=== PATIENT | male | born 1970 | race Caucasian/White ===

== ENCOUNTER 2016-12-10 22:59 | Emergency (ER) | payer OTHER ==
[~2016-12-10] VITALS: Ht 172.7 cm; Wt 117.9 kg
[~2016-12-10 22:59] MED LIST: ALBUTEROL SULF8.5 GM INH; AUGMENTIN 875-1 EAC1 ORAL; AZITHROMYCIN250 MG ORAL; BACTRIM-DS1 EA PO; CEPHALEXIN500 MG PO; COLACE100 MG PO; CYCLOBENZAPRINE10 MG ORAL; IBUPROFEN600 MG ORAL; KEFLEX500 MG ORAL; KEFLEX500 MG PO; METFORMIN HCL500 M1 ORAL; NAPROSYN500 M1 ORAL; NEURONTIN100 MG ORAL; NORCO 10/3251 EA ORAL; NORCO 5-325 TA1 EACH ORAL; NORVASC5 MG PO; PREDNISONE20 MG ORAL; RANITIDINE HCL150 MG ORAL; REGLAN5 MG ORAL; TOPROL XL25 MG PO; TYLENOL 8 HOUR650 M1 ORAL; VICODIN 5-5001 EACH PO
--- NOTE | 2016-12-10 23:53 | Emergency Room Report ---
History of Present Illness General Chief Complaint: Abdominal Pain Source: Patient Present Illness HPI Is a 46-year-old male with a history of diabetes and morbid obesity. He presents with chief complaint of suprapubic and left lower quadrant pain. Onset for last 4 days. Initially had an episode fever. No nausea no vomiting. No diarrhea. Does have some urinary hesitancy. Denies any other complaint. Pain is 7/10. Allergies: Coded Allergies: No Known Allergies (Unverified , 02/09/12) Patient History Past Medical History: see triage record, old chart reviewed, DM Past Surgical History: other Pertinent Family History: none Social History: Reports: smoking Immunizations: other Reviewed Nursing Documentation: PMH: Agreed, PSxH: Agreed Nursing Documentation-PMH Hx Hypertension: Yes Hx Asthma: Yes Hx Diabetes: Yes Hx Gastrointestinal Problems: Yes - hernia Review of Systems Eye: Denies: eye pain, blurred vision ENT: Denies: ear pain, nose congestion, throat swelling Respiratory: Denies: cough, shortness of breath Cardiovascular: Denies: chest pain, palpitations Gastrointestinal: Reports: abdominal pain, Denies: diarrhea, nausea, vomiting Musculoskeletal: Denies: back pain, joint pain Skin: Denies: rash Neurological: Denies: headache, numbness Endocrine: Denies: increased thirst, increased urine Hematologic/Lymphatic: Denies: easy bruising All Other Systems: negative except mentioned in HPI Physical Exam Vital Signs Date Time Temp Pulse Resp B/P (MAP) Pulse Ox O2 Delivery O2 Flow Rate FiO2 12/10/16 23:08 98.1 97 16 144/92 99 Room Air vitals normal Sp02 EP Interpretation: reviewed, normal General Appearance: well appearing, no apparent distress, alert, obese Head: normocephalic, atraumatic Eyes: bilateral eye PERRL, bilateral eye EOMI ENT: hearing grossly normal, normal pharynx Neck: full range of motion, supple, no meningismus Respiratory: chest non-tender, lungs clear, normal breath sounds Cardiovascular #1: regular rate, rhythm, no murmur Gastrointestinal: normal bowel sounds, no mass, no organomegaly, no bruit, non- distended, tenderness - Mild suprapubic and left lower quadrant tenderness Musculoskeletal: back normal, gait/station normal, normal range of motion Psychiatric: mood/affect normal Skin: warm/dry Medical Decision Making Diagnostic Impression: Primary Impression: Diverticulitis Qualified Codes: K57.32 - Diverticulitis of large intestine without perforation or abscess without bleeding ER Course Patient presents with left lower caught her and pain and has diverticulitis on CT scan. He looks well. No evidence of acute abdomen. We'll put on antibiotics. We'll discharge him. Lab Results Impression labs unremarkable CT/MRI/US Diagnostic Results CT/MRI/US Diagnostic Results : Imaging Test Ordered: CT abdomen and pelvis Impression read by radiologist. Acute diverticulitis with colon. Last Vital Signs Date Time Temp Pulse Resp B/P (MAP) Pulse Ox O2 Delivery O2 Flow Rate FiO2 12/10/16 23:08 98.1 97 16 144/92 99 Room Air Status: improved Disposition: HOME, SELF-CARE Condition: Stable Scripts Metronidazole* (FLAGYL*) 500 Mg Tablet 500 MG ORAL BID, #14 TAB Prov: BARBER HIDALGO M.D. 12/11/16 Ciprofloxacin Hcl* (CIPROFLOXACIN HCL*) 500 Mg Tablet 500 MG ORAL Q12H, #14 TAB 0 Refills Prov: BARBER HIDALGO M.D. 12/11/16 Additional Instructions: Followup with your DrMargarita in 2 to 3 days for recheck. Return if worse. BARBER HIDALGO M.D. Dec 10, 2016 23:53
[2016-12-11 00:02] LABS: BASOPHILS % (AUTO) 1.2 % (0.0-2.0); LYMPHOCYTES % (AUTO) 32.6 % (20.0-45.0); MEAN CORPUSCULAR HEMOGLOBIN 30.1 PG (27.0-31.0); MEAN CORPUSCULAR HGB CONC 33.9 G/DL (32.0-36.0); MEAN CORPUSCULAR VOLUME 89 FL (80-99); MEAN PLATELET VOLUME 6.3 FL (6.5-10.1); MONOCYTES % (AUTO) 6.9 % (1.0-10.0); NEUTROPHILS % (AUTO) 56.3 % (45.0-75.0); PLATELET COUNT 314 K/UL (150-450); RED BLOOD COUNT 5.03 M/UL (4.70-6.10); RED CELL DISTRIBUTION WIDTH 13.3 % (11.6-14.8); WHITE BLOOD COUNT 11.3 K/UL (4.8-10.8)
[2016-12-11 00:04] LABS: APPEARANCE,URINE CLEAR; KETONES,URINE 1+ (NEGATIVE); LEUKOCYTE ESTERASE ,URINE 1+ (NEGATIVE); NITRITE,URINE NEGATIVE (NEGATIVE); PH,URINE 5 (4.5-8.0); PROTEIN,URINE 2+ (NEGATIVE); UROBILINOGEN,URINE 1 MG/DL (0.0-1.0)
[2016-12-11 00:18] LABS: RBC,URINE 0-2 /HPF (0 - 0)
[2016-12-11 00:19] LABS: BACTERIA,URINE FEW /HPF; SQUAMOUS EPITHELIAL CELL,UR FEW /LPF (NONE/OCC); WBC,URINE 0-2 /HPF (0 - 0)
[2016-12-11 00:24] LABS: ALANINE AMINOTRANSFERASE 79 U/L (12-78); ALBUMIN/GLOBULIN RATIO 0.8 (1.0-2.7); ANION GAP 11 mmol/L (5-15); ASPARTATE AMINO TRANSFERASE 22 U/L (15-37); CALCIUM 9.5 MG/DL (8.5-10.1); CARBON DIOXIDE 26 MMOL/L (21-32); CHLORIDE 103 MMOL/L (98-107); CREATININE 1.1 MG/DL (0.55-1.30); GLOMERULAR FILTRATION RATE > 60 mL/min (>60); LIPASE 153 U/L (73-393); POTASSIUM 3.8 MMOL/L (3.5-5.1); SODIUM 140 MMOL/L (136-145); TOTAL PROTEIN 8.8 G/DL (6.4-8.2)
[2016-12-11] MEDS ORDERED: CIPROFLOXACIN500 M2 ORAL (01:26)
[2016-12-11] MEDS ORDERED: METRONIDAZOLE500 MG ORAL (01:26)
[2016-12-11] MEDS ORDERED: Ciprofloxacin 500mg tab ORAL ONE (01:30)
[2016-12-11] MEDS ORDERED: metroNIDAZOLE 500mg tab ORAL ONE (01:30)
[2016-12-11 01:33] VITALS: BP 144/92
--- NOTE | 2016-12-11 09:42 | Diagnostic Imaging Report ---
Indication: Abdominal pain. Painful urination Technique: Spiral acquisitions obtained through the abdomen and pelvis. No oral contrast utilized, per emergency room physician request No IV contrast utilized, per referring physician request.. Multiplanar reconstructions were generated. Total dose length product 1666 mGycm. CTDIvol(s) 31 mGy. Dose reduction achieved using automated exposure control Comparison: None Findings: There is sigmoid diverticulosis. There is inflammation surrounding the mid sigmoid colon. The affected sigmoid wall is thickened. No extraluminal gas or fluid is demonstrated. The appendix is normal. There is no small bowel distention. No free or loculated intraperitoneal air or fluid is evident. The distal esophageal wall is mildly thickened. The stomach and duodenum are unremarkable is a small fat-containing umbilical hernia. There are small fat-containing bilateral inguinal hernias. Lack of IV contrast limits assessment of solid organs. The liver is diffusely mildly hypoattenuating, consistent with mild fatty change. The gallbladder, bile ducts, pancreas, spleen, adrenals, kidneys, ureters, bladder are all unremarkable. No retroperitoneal or mesenteric mass or adenopathy. No pelvic mass or adenopathy. The included lung bases are clear. The bones are unremarkable. Impression: Positive for acute uncomplicated sigmoid diverticulitis Fatty liver Fat-containing umbilical and bilateral inguinal hernias incidentally noted This agrees with the preliminary interpretation provided overnight by [facility]. The CT scanner at [facility] is accredited by the [employer] and the scans are performed using protocols designed to limit radiation exposure to as low as reasonably achievable to attain images of sufficient resolution adequate for diagnostic evaluation.
== END 2016-12-11 01:35 | disposition home or self-care (01) ==
LOC: EMR 23:45
DX: K57.32 Diverticulitis of large intestine without perforation or abscess without bleeding (principal); I10 Essential (primary) hypertension; J45.909 Unspecified asthma, uncomplicated; E11.9 Type 2 diabetes mellitus without complications; F17.200 Nicotine dependence, unspecified, uncomplicated; K76.0 Fatty (change of) liver, not elsewhere classified; K42.9 Umbilical hernia without obstruction or gangrene; K40.20 Bilateral inguinal hernia, without obstruction or gangrene, not specified as recurrent
CPT/HCPCS: 36415; 74176; 80053; 80307; 81003; 83690; 85025; 99284

== ENCOUNTER 2017-03-10 02:01 | Emergency (ER) | payer OTHER ==
[~2017-03-10] VITALS: Ht 172.7 cm; Wt 99.8 kg
[~2017-03-10 02:01] MED LIST changes: +CIPROFLOXACIN500 M2 ORAL; +METRONIDAZOLE500 MG ORAL
[2017-03-10 02:15] VITALS: BP 151/97
[2017-03-10] MEDS ORDERED: BACTRIM DS TAB1 EAC1 ORAL (02:45)
[2017-03-10] MEDS ORDERED: IBUPROFEN600 MG ORAL (02:45)
--- NOTE | 2017-03-10 02:46 | Emergency Room Report ---
History of Present Illness General Chief Complaint: Skin Rash/Abscess Source: Patient Present Illness HPI Is a 46-year-old male with a history of abscess in the past. He presents with a right thigh abscess. It has been there for 3 days. He poked it with a needle. There was a small amount of drainage. Now increasing swelling. No fever chills. no new drainage. Pain is 8/10. Allergies: Coded Allergies: No Known Allergies (Unverified , 02/09/12) Patient History Past Medical History: see triage record, old chart reviewed Past Surgical History: other Pertinent Family History: none Social History: Denies: smoking Immunizations: other Reviewed Nursing Documentation: PMH: Agreed, PSxH: Agreed Nursing Documentation-PMH Hx Hypertension: Yes Hx Asthma: Yes Hx Diabetes: Yes Hx Gastrointestinal Problems: Yes - hernia Review of Systems Eye: Denies: eye pain, blurred vision ENT: Denies: ear pain, nose congestion, throat swelling Respiratory: Denies: cough, shortness of breath Cardiovascular: Denies: chest pain, palpitations Gastrointestinal: Denies: abdominal pain, diarrhea, nausea, vomiting Musculoskeletal: Denies: back pain, joint pain Skin: Denies: rash Neurological: Denies: headache, numbness Endocrine: Denies: increased thirst, increased urine Hematologic/Lymphatic: Denies: easy bruising All Other Systems: negative except mentioned in HPI Physical Exam Vital Signs Date Time Temp Pulse Resp B/P (MAP) Pulse Ox O2 Delivery O2 Flow Rate FiO2 03/10/17 02:06 97.5 104 18 151/97 96 Room Air vitals normal except for high blood pressure Sp02 EP Interpretation: reviewed, normal General Appearance: well appearing, no apparent distress, alert, obese Head: normocephalic, atraumatic Eyes: bilateral eye PERRL, bilateral eye EOMI ENT: hearing grossly normal, normal pharynx Neck: full range of motion, supple, no meningismus Respiratory: chest non-tender, lungs clear, normal breath sounds Cardiovascular #1: regular rate, rhythm, no murmur Gastrointestinal: normal bowel sounds, non tender, no mass, no organomegaly, no bruit, non-distended Musculoskeletal: back normal, gait/station normal, normal range of motion, other - Right inner thigh proximally, or is an indurated area of 3 cm with surround erythema. Psychiatric: mood/affect normal Skin: warm/dry Procedures Incision and Drainage Incision and Drainage : Consent: Verbal Site: Right thigh Blade Size: 11 I & D Procedure: betadine prep, sterile drapes applied, sterile dressing applied, gauze wick placed Wound Location: lower extremity Anesthesia: 1% Lidocaine Volume Anesthetic (ccs): 8 Patient Tolerated: Well Complications: None Progress Area clean with Betadine. Local anesthetic 1% lidocaine without epinephrine. I made a 2 cm incision. Loculated area broken up. Only scant amount of pus expressed. Packing done. Patient tolerated procedure without a problem. Medical Decision Making Diagnostic Impression: Primary Impression: Thigh abscess ER Course Patient presents with an early abscess. Minimal drainage. We'll discharge home. Deep infection. No necrotizing fasciitis. Last Vital Signs Date Time Temp Pulse Resp B/P (MAP) Pulse Ox O2 Delivery O2 Flow Rate FiO2 03/10/17 02:15 97.5 104 18 151/97 96 Room Air Status: improved Disposition: HOME, SELF-CARE Condition: Stable Scripts Ibuprofen* (MOTRIN*) 600 Mg Tablet 600 MG ORAL Q8H Y for For Pain, #30 TAB 0 Refills Prov: BARBER HIDALGO M.D. 03/10/17 Trimethoprim/Sulfamethoxazole 160/800* (BACTRIM DS TABLET*) 1 Each Tablet 1 TAB ORAL Q12H, #14 TAB 0 Refills Prov: BARBER HIDALGO M.D. 03/10/17 Referrals: [facility] (PCP) Patient Instructions: Abscess Additional Instructions: Followup in 2 days for recheck. Return if worse. BARBER HIDALGO M.D. Mar 10, 2017 02:46
[2017-03-10 02:54] VITALS: BP 151/97
[2017-03-10] MEDS ORDERED: Bactrim-DS 1 tab ORAL ONE (03:00)
== END 2017-03-10 02:55 | disposition home or self-care (01) ==
LOC: EMR 02:20
DX: L02.415 Cutaneous abscess of right lower limb (principal); E11.9 Type 2 diabetes mellitus without complications; J45.909 Unspecified asthma, uncomplicated; I10 Essential (primary) hypertension
CPT/HCPCS: 10060; 99283

== ENCOUNTER 2017-03-18 01:36 | Emergency (ER) | payer OTHER ==
[~2017-03-18] VITALS: Ht 177.8 cm; Wt 104.3 kg
[~2017-03-18 01:36] MED LIST changes: +BACTRIM DS TAB1 EAC1 ORAL
[2017-03-18] MEDS ORDERED: METFORMIN HCL500 M1 ORAL (01:44)
[2017-03-18 01:45] VITALS: BP 140/96
[2017-03-18] MEDS ORDERED: BACTRIM DS TAB1 EAC1 ORAL (01:57)
[2017-03-18 02:27] VITALS: BP 140/96
[2017-03-18] MEDS ORDERED: Tetanus/Diptheria/Pertussis Vaccine 0.5ml Syr IM ONE (02:30)
[2017-03-18] MEDS ORDERED: Bactrim-DS 1 tab ORAL ONE (02:30)
--- NOTE | 2017-03-18 04:00 | Emergency Room Report ---
History of Present Illness General Chief Complaint: Wound Recheck/Suture Removal Source: Patient Present Illness HPI Patient is a 46-year-old male presented for wound check on recently surgical site. The patient recently had incision and drainage of a right thigh abscess. Patient had no fever. He reported having moderate pain. He denied any chest pain or shortness of breath. Patient reportedly had finished his antibiotics. Allergies: Coded Allergies: No Known Allergies (Unverified , 02/09/12) Patient History Past Medical History: see triage record Reviewed Nursing Documentation: PMH: Agreed, PSxH: Agreed Nursing Documentation-PMH Hx Hypertension: Yes Hx Asthma: Yes Hx Diabetes: Yes Hx Gastrointestinal Problems: Yes - hernia Review of Systems All Other Systems: negative except mentioned in HPI Physical Exam Vital Signs Date Time Temp Pulse Resp B/P (MAP) Pulse Ox O2 Delivery O2 Flow Rate FiO2 03/18/17 01:40 101 24 140/96 97 Room Air General Appearance: no apparent distress, alert, GCS 15, Chronically Ill Head: normocephalic, atraumatic ENT: hearing grossly normal, normal voice Neck: full range of motion, supple Respiratory: lungs clear, normal breath sounds, no respiratory distress, speaking full sentences Cardiovascular #1: normal peripheral pulses, regular rate, rhythm, no edema Gastrointestinal: normal inspection, non tender, soft Musculoskeletal: normal inspection, back normal, no calf tenderness Neurologic: normal inspection, alert, oriented x3, responsive, sales ledger administrator III-XII nml as tested, motor strength/tone normal, normal gait Psychiatric: mood/affect normal Skin: no rash, other - healing abscess without drainage slight induration no erythema Medical Decision Making Diagnostic Impression: Primary Impression: Visit for wound check ER Course Patient presented for wound check. Differential diagnosis included was not limited to infected wound, nonhealed wound, neuroma, healed wound. Patient was given tetanus vaccine. Patient was noted to have some evidence of the continued infection but this has does not appear frankly infected. Patient was given oral antibiotics and prescription for antibiotics.The patient is advised to follow up with primary care doctor in 1-2 days. Patient is advised to return if any worsening condition or if any changes in status that are concerning. This report is dictated with [employer] optical assistant software which may occasionally lead to discrepancies related to use of this software. Last Vital Signs Date Time Temp Pulse Resp B/P (MAP) Pulse Ox O2 Delivery O2 Flow Rate FiO2 03/18/17 02:27 101 24 140/96 97 Room Air Status: improved Disposition: HOME, SELF-CARE Condition: Stable Scripts Trimethoprim/Sulfamethoxazole 160/800* (BACTRIM DS TABLET*) 1 Each Tablet 1 TAB ORAL Q12H, #14 TAB 0 Refills Prov: Harrison Stafford 03/18/17 Referrals: [facility] (PCP) Patient Instructions: Wound Check Harrison Stafford Mar 18, 2017 04:00
== END 2017-03-18 02:27 | disposition home or self-care (01) ==
LOC: EMR 01:56
DX: Z48.00 Encounter for change or removal of nonsurgical wound dressing (principal); Z23 Encounter for immunization; I10 Essential (primary) hypertension; E11.9 Type 2 diabetes mellitus without complications; J45.909 Unspecified asthma, uncomplicated
CPT/HCPCS: 90471; 90715; 99283

== ENCOUNTER 2017-09-13 20:46 | Emergency (ER) | payer OTHER ==
[~2017-09-13] VITALS: Ht 172.7 cm; Wt 115.7 kg
[2017-09-13 21:03] VITALS: BP 156/94
--- NOTE | 2017-09-13 21:08 | Emergency Room Report ---
History of Present Illness General Chief Complaint: Upper Extremity Injury Source: Patient Present Illness HPI This is a 46-year-old male who is right-hand dominant. He presents with right thumb pain. He injured his hand several weeks ago he said. He was pushing a block of ice to break it. He said he hurt his thumb. His been wearing a brace but is not getting any better. Denies any fever chills. Worse with movement. Worse with palpation. No nausea no vomiting. No other injury. pain is 8 out of 10. Allergies: Coded Allergies: No Known Allergies (Unverified , 02/09/12) Patient History Past Medical History: see triage record, old chart reviewed, DM, HTN Past Surgical History: other Pertinent Family History: none Social History: Denies: smoking Immunizations: other Reviewed Nursing Documentation: PMH: Agreed; PSxH: Agreed Nursing Documentation-PMH Hx Hypertension: Yes Hx Asthma: Yes Hx Diabetes: Yes Hx Gastrointestinal Problems: Yes - hernia Review of Systems Eye: Denies: eye pain, blurred vision ENT: Denies: ear pain, nose congestion, throat swelling Respiratory: Denies: cough, shortness of breath Cardiovascular: Denies: chest pain, palpitations Gastrointestinal: Denies: abdominal pain, diarrhea, nausea, vomiting Musculoskeletal: Reports: joint pain; Denies: back pain Skin: Denies: rash Neurological: Denies: headache, numbness Endocrine: Denies: increased thirst, increased urine Hematologic/Lymphatic: Denies: easy bruising All Other Systems: negative except mentioned in HPI Physical Exam Vital Signs Date Time Temp Pulse Resp B/P (MAP) Pulse Ox O2 Delivery O2 Flow Rate FiO2 09/13/17 20:48 98.6 90 20 156/94 97 Room Air 98.6 vitals with high blood pressure Sp02 EP Interpretation: reviewed, normal General Appearance: well appearing, no apparent distress, alert, obese Head: normocephalic, atraumatic Eyes: bilateral eye PERRL, bilateral eye EOMI ENT: hearing grossly normal, normal pharynx Neck: full range of motion, supple, no meningismus Respiratory: chest non-tender, lungs clear, normal breath sounds Cardiovascular #1: regular rate, rhythm, no murmur Gastrointestinal: normal bowel sounds, non tender, no mass, no organomegaly, no bruit, non-distended Musculoskeletal: back normal, gait/station normal, normal range of motion, tender - base of right thumb. Full range of motion Neurologic: alert, oriented x3 Psychiatric: mood/affect normal Skin: warm/dry Medical Decision Making Diagnostic Impression: Primary Impression: thumb sprain ER Course Patient with thumb pain for weeks. No evidence of any fracture. He may have collateral ligament injury area and no evidence of septic joint. He R he had his splint. We'll discharge home. Other X-Ray Diagnostic Results Other X-Ray Diagnostic Results : X-Ray ordered: right thumb x-rays # of Views/Limited Vs Complete: 3 View Indication: Pain EP Interpretation: Yes Interpretation: no dislocation, no soft tissue swelling, no fractures Impression: No acute disease Electronically Signed by: Ashok Liang MD Last Vital Signs Date Time Temp Pulse Resp B/P (MAP) Pulse Ox O2 Delivery O2 Flow Rate FiO2 09/13/17 20:48 98.6 90 20 156/94 97 Room Air 98.6 Status: unchanged Disposition: HOME, SELF-CARE Condition: Stable Additional Instructions: Follow-up with your doctor in 7 days. Return if symptom worsen. Wear your brace for comfort as needed. ASHOK LIANG M.D. Sep 13, 2017 21:08
[2017-09-13 21:45] VITALS: BP 156/94
--- NOTE | 2017-09-14 10:21 | Diagnostic Imaging Report ---
Indication: Trauma, pain Technique: 3 views of the right thumb Comparison: none Findings: No acute fractures. No dislocations. The joint spaces are preserved. Impression: Negative
== END 2017-09-13 21:50 | disposition home or self-care (01) ==
LOC: EMR 21:33
DX: S63.601A Unspecified sprain of right thumb, initial encounter (principal); W22.8XXA Striking against or struck by other objects, initial encounter; Y93.89 Activity, other specified; Y92.9 Unspecified place or not applicable; E11.9 Type 2 diabetes mellitus without complications; I10 Essential (primary) hypertension; J45.909 Unspecified asthma, uncomplicated
CPT/HCPCS: 99283

== ENCOUNTER 2017-12-25 22:21 | Emergency (ER) | payer OTHER ==
[~2017-12-25] VITALS: Ht 172.7 cm; Wt 113.4 kg
[2017-12-25 22:30] VITALS: BP 154/97
[2017-12-25] MEDS ORDERED: AUGMENTIN 875-1 EAC1 ORAL (22:41)
[2017-12-25] MEDS ORDERED: Tetanus/Diptheria/Pertussis Vaccine 0.5ml Syr IM ONE (22:45)
[2017-12-25] MEDS ORDERED: Augmentin 875mg Tab ORAL ONE (22:45)
[2017-12-25 23:00] VITALS: BP 154/97
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
== END 2017-12-25 23:00 | disposition home or self-care (01) ==
LOC: EMR 22:50
DX: S30.871A Other superficial bite of abdominal wall, initial encounter (principal); W50.3XXA Accidental bite by another person, initial encounter; Y92.9 Unspecified place or not applicable; Z23 Encounter for immunization; I10 Essential (primary) hypertension; E11.9 Type 2 diabetes mellitus without complications; J45.909 Unspecified asthma, uncomplicated
CPT/HCPCS: 90471; 90715; 99283

== ENCOUNTER 2017-12-31 23:13 | Emergency (ER) | payer OTHER ==
[~2017-12-31] VITALS: Ht 174 cm; Wt 116.1 kg
[2017-12-31 23:45] VITALS: BP 155/90
[2017-12-31] MEDS ORDERED: MUPIROCIN22 GM TOPIC (23:45)
[2017-12-31] MEDS ORDERED: AUGMENTIN 875-1 EAC1 ORAL (23:45)
[2017-12-31] MEDS ORDERED: LACTULOSE20 GM/301 ORAL (23:45)
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
[2018-01-01] MEDS ORDERED: Hydrogen Peroxide 473ml Bottle TOPIC ONE
[2018-01-01 00:10] VITALS: BP 155/90
== END 2018-01-01 00:55 | disposition home or self-care (01) ==
LOC: EMR 23:55
DX: Z48.00 Encounter for change or removal of nonsurgical wound dressing (principal); S30.871D Other superficial bite of abdominal wall, subsequent encounter; W50.3XXD Accidental bite by another person, subsequent encounter; R10.9 Unspecified abdominal pain; K59.00 Constipation, unspecified; E11.65 Type 2 diabetes mellitus with hyperglycemia; J45.909 Unspecified asthma, uncomplicated; I10 Essential (primary) hypertension
CPT/HCPCS: 82962; 99283

== ENCOUNTER 2018-01-09 23:36 | Emergency (ER) | payer OTHER ==
[~2018-01-09] VITALS: Ht 172.7 cm; Wt 113.4 kg
[~2018-01-09 23:36] MED LIST changes: +LACTULOSE20 GM/301 ORAL; +MUPIROCIN22 GM TOPIC
[2018-01-09 23:50] VITALS: BP 157/92
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
[2018-01-10 00:20] VITALS: BP 157/92
== END 2018-01-10 00:20 | disposition home or self-care (01) ==
LOC: EMR 23:59
DX: H92.02 Otalgia, left ear (principal); Z48.00 Encounter for change or removal of nonsurgical wound dressing; I10 Essential (primary) hypertension; J45.909 Unspecified asthma, uncomplicated; E11.9 Type 2 diabetes mellitus without complications
CPT/HCPCS: 99282

== ENCOUNTER 2018-05-07 13:20 | Emergency (ER) | payer OTHER ==
[~2018-05-07] VITALS: Ht 172.7 cm; Wt 107.5 kg
[2018-05-07 13:34] VITALS: BP 132/84
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
[2018-05-07] MEDS: Ketorolac 60mg Inj IM ONE ×2 (14:04→14:17)
[2018-05-07] MEDS ORDERED: Naproxen 500mg tab ORAL ONE (14:15)
--- NOTE | 2018-05-07 14:19 | NUR ---
ED Nurse Note: patient just left to get phone from his car. pt insisted on leaving to get his phone.
--- NOTE | 2018-05-07 14:49 | NUR ---
ED Nurse Note: patient is back from CT
[2018-05-07] MEDS ORDERED: TYLENOL325 MG ORAL (16:05)
[2018-05-07] MEDS ORDERED: IBUPROFEN600 MG ORAL (16:05)
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
[2018-05-07 16:27] VITALS: BP 135/75
--- NOTE | 2018-05-07 16:28 | NUR ---
ED Nurse Note: Pt cleared by health care Provider for discharge. DC instructions/prescription was given and explained to pt and verbalized understanding of teachings. All medical deviecs such as ID band removed. Pt is AAO x4, ambulatory and left with all personal belongings.
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
== END 2018-05-07 16:28 | disposition home or self-care (01) ==
LOC: EMR 15:35
DX: S39.011A Strain of muscle, fascia and tendon of abdomen, initial encounter (principal); V49.9XXA Car occupant (driver) (passenger) injured in unspecified traffic accident, initial encounter; Y92.410 Unspecified street and highway as the place of occurrence of the external cause; M54.9 Dorsalgia, unspecified; M54.2 Cervicalgia; G89.29 Other chronic pain; K42.9 Umbilical hernia without obstruction or gangrene; K40.20 Bilateral inguinal hernia, without obstruction or gangrene, not specified as recurrent; I10 Essential (primary) hypertension; E11.9 Type 2 diabetes mellitus without complications
CPT/HCPCS: 71250; 74176; 99284

== ENCOUNTER 2018-06-02 19:50 | Emergency (ER) | payer OTHER ==
[~2018-06-02] VITALS: Ht 172.7 cm; Wt 107.0 kg
[~2018-06-02 19:50] MED LIST changes: +TYLENOL325 MG ORAL
[2018-06-02] MEDS ORDERED: ATORVASTATIN CA40 MG ORAL (19:55)
[2018-06-02 20:10] VITALS: BP 150/99
--- NOTE | 2018-06-02 20:10 | NUR ---
ED Nurse Note: Patient walked in with steady gait c/o abdominal pain since this morning. Per patient he was diagnosed with dibverticulosis couple month ago, and he so worry that he has inflamation in his stomach. AAO x4, skin is dry intact, warm to touch. labs sent down. Will continue to monitor.
[2018-06-02] MEDS: Dicyclomine HCl 10mg/5ml oral soln ORAL ONE (20:24)
[2018-06-02] MEDS: Lidocaine 2% Visc 15ml soln ORAL ONE (20:25)
[2018-06-02] MEDS: Mylanta II UD 30ml ORAL ONE (20:26)
[2018-06-02 20:36] LABS: APPEARANCE,URINE SLIGHTLY CLOUDY; BILIRUBIN, URINE NEGATIVE (NEGATIVE); COLOR,URINE PALE YELLOW; GLUCOSE, URINE (UA) NEGATIVE (NEGATIVE); KETONES,URINE NEGATIVE (NEGATIVE); LEUKOCYTE ESTERASE ,URINE NEGATIVE (NEGATIVE); NITRITE,URINE NEGATIVE (NEGATIVE); PH,URINE 5 (4.5-8.0); PROTEIN,URINE 2+ (NEGATIVE); UROBILINOGEN,URINE NORMAL MG/DL (0.0-1.0)
[2018-06-02 20:40] LABS: BASOPHILS % (AUTO) 1.9 % (0.0-2.0); EOSINOPHILS % (AUTO) 2.7 % (0.0-3.0); HEMATOCRIT 46.4 % (42.0-52.0); HEMOGLOBIN 15.8 G/DL (14.2-18.0); LYMPHOCYTES % (AUTO) 29.1 % (20.0-45.0); MEAN CORPUSCULAR VOLUME 84 FL (80-99); MONOCYTES % (AUTO) 6.6 % (1.0-10.0); NEUTROPHILS % (AUTO) 59.6 % (45.0-75.0); PLATELET COUNT 283 K/UL (150-450); RED BLOOD COUNT 5.49 M/UL (4.70-6.10); RED CELL DISTRIBUTION WIDTH 12.7 % (11.6-14.8); WHITE BLOOD COUNT 11.4 K/UL (4.8-10.8)
[2018-06-02 20:48] LABS: ANION GAP 11 mmol/L (5-15); BLOOD UREA NITROGEN 14 mg/dL (7-18); CALCIUM 9.9 MG/DL (8.5-10.1); CARBON DIOXIDE 27 MMOL/L (21-32); CHLORIDE 101 MMOL/L (98-107); CREATININE 1.1 MG/DL (0.55-1.30); POTASSIUM 4.1 MMOL/L (3.5-5.1); SODIUM 139 MMOL/L (136-145)
[2018-06-02 20:53] LABS: ALANINE AMINOTRANSFERASE 44 U/L (12-78); ALBUMIN/GLOBULIN RATIO 0.8 (1.0-2.7); ALKALINE PHOSPHATASE 88 U/L (46-116); ASPARTATE AMINO TRANSFERASE 15 U/L (15-37); BILIRUBIN,TOTAL 0.5 MG/DL (0.2-1.0)
[2018-06-02] MEDS ORDERED: LEVAQUIN750 MG ORAL (21:07)
[2018-06-02] MEDS ORDERED: RANITIDINE HCL150 MG ORAL (21:07)
[2018-06-02] MEDS: Metoprolol 25mg tab ORAL ONE (21:12)
[2018-06-02 21:26] VITALS: BP 150/90
--- NOTE | 2018-06-02 21:28 | NUR ---
ER DISCHARGE NOTE: Patient is cleared to be discharged per ERMD, pt is aox4, on room air, with stable vital signs. pt was given dc and prescription instructions, pt was able to verbalize understanding, pt id band and iv site removed without complications. pt is able to ambulate with steady gait. pt took all belongings.
--- NOTE | 2018-06-03 14:12 | Emergency Room Report ---
History of Present Illness General Chief Complaint: Abdominal Pain Source: Patient Present Illness HPI 47-year-old male presents ED for evaluation. Patient complaining of abdominal pain. Started yesterday. Burning, 5 out of 10, epigastric, worse with eating. Denies nausea or vomiting. States he also has history of diverticulitis. States that about 2 weeks ago he was prescribed antibiotics but states he did not complete the prescription. Denies fevers or chills. Denies any blood in stool. Also notes he has a rash on his abdomen for the last few days. Denies any known food or drug allergies. States it is very itchy. Denies any tongue swelling or throat swelling. Denies any shortness of breath. No other aggravating relieving factors. Denies any other associated symptoms Allergies: Coded Allergies: No Known Allergies (Unverified , 02/09/12) Patient History Past Medical History: DM, HTN, asthma Past Surgical History: none Pertinent Family History: none Social History: Denies: smoking, alcohol use, drug use Immunizations: UTD Reviewed Nursing Documentation: PMH: Agreed; PSxH: Agreed Nursing Documentation-PMH Hx Hypertension: Yes Hx Asthma: Yes Hx Diabetes: Yes - DM II Hx Cancer: Yes - Skin cancer Hx Gastrointestinal Problems: Yes - hernia Review of Systems All Other Systems: negative except mentioned in HPI Physical Exam Vital Signs Date Time Temp Pulse Resp B/P (MAP) Pulse Ox O2 Delivery O2 Flow Rate FiO2 06/02/18 19:51 98.8 100 18 150/99 96 Room Air Sp02 EP Interpretation: reviewed, normal General Appearance: no apparent distress, alert, GCS 15, non-toxic, obese Head: normocephalic, atraumatic Eyes: bilateral eye normal inspection, bilateral eye PERRL ENT: hearing grossly normal, normal pharynx, no angioedema, normal voice Neck: full range of motion, supple/symm/no masses Respiratory: chest non-tender, lungs clear, normal breath sounds, speaking full sentences Cardiovascular #1: regular rate, rhythm, no edema Cardiovascular #2: 2+ carotid (R), 2+ carotid (L), 2+ radial (R), 2+ radial (L) , 2+ dorsalis pedis (R), 2+ dorsalis pedis (L) Gastrointestinal: normal bowel sounds, soft, non-distended, no guarding, no rebound, tenderness - epigastric Rectal: deferred Genitourinary: normal inspection, no CVA tenderness Musculoskeletal: back normal, gait/station normal, normal range of motion, non- tender Neurologic: alert, oriented x3, responsive, motor strength/tone normal, sensory intact, speech normal Psychiatric: judgement/insight normal, memory normal, mood/affect normal, no suicidal/homicidal ideation Reflexes: 3+ bicep (R), 3+ bicep (L), 3+ tricep (R), 3+ tricep (L), 3+ knee (R) , 3+ knee (L) Skin: normal color, warm/dry, well hydrated, rash - papular rash to abdomen. Lymphatic: no adenopathy Medical Decision Making Diagnostic Impression: Primary Impression: Gastritis Qualified Codes: K29.00 - Acute gastritis without bleeding ER Course Hospital Course 47-year-old M presents to ED with epigastric pain with eating. also c/o rash differential diagnosis: gastritis, SBO, cholecystits Clinical course Patient placed on stretcher. On child watch attendant. After initial history and physical I ordered labs, IV fluids, GI cocktail and pepcid Labs - minimal leukocytosis, no electrolyte abnormalities, LFTs normal, UA unremarkable Discussed findings with patient. Likely gastritis. Abdomen is soft. No fever. No guarding. Patient does have history of diverticulitis. We discussed option of CT but patient declined stating that many CTs in the past. We will prescribe antibiotics for presumed diverticulitis as well. Safe for discharge close patient follow up. Does not have a PMD. We'll provide referrals I feel this is a highly complex case requiring extensive working including EKG/ Rhythm strip, Xray/CT/US, Blood/urine lab work, repeat exams while in ED, and administration of strong opiates/narcotics for pain control, admission to hospital or close patient follow up. Diagnosis - gastritis Stable and discharged to home with prescriptions for Zantac, levaquin, benedryl. Followup with PMD. Return to ED if symptoms recur or worsen Labs Test 06/02/18 20:20 White Blood Count 11.4 K/UL (4.8-10.8) Red Blood Count 5.49 M/UL (4.70-6.10) Hemoglobin 15.8 G/DL (14.2-18.0) Hematocrit 46.4 % (42.0-52.0) Mean Corpuscular Volume 84 FL (80-99) Mean Corpuscular Hemoglobin 28.7 PG (27.0-31.0) Mean Corpuscular Hemoglobin Concent 34.0 G/DL (32.0-36.0) Red Cell Distribution Width 12.7 % (11.6-14.8) Platelet Count 283 K/UL (150-450) Mean Platelet Volume 6.2 FL (6.5-10.1) Neutrophils (%) (Auto) 59.6 % (45.0-75.0) Lymphocytes (%) (Auto) 29.1 % (20.0-45.0) Monocytes (%) (Auto) 6.6 % (1.0-10.0) Eosinophils (%) (Auto) 2.7 % (0.0-3.0) Basophils (%) (Auto) 1.9 % (0.0-2.0) Urine Color Pale yellow Urine Appearance Slightly cloudy Urine pH 5 (4.5-8.0) Urine Specific [place] 1.015 (1.005-1.035) Urine Protein 2+ (NEGATIVE) Urine Glucose (UA) Negative (NEGATIVE) Urine Ketones Negative (NEGATIVE) Urine Blood 1+ (NEGATIVE) Urine Nitrite Negative (NEGATIVE) Urine Bilirubin Negative (NEGATIVE) Urine Urobilinogen Normal MG/DL (0.0-1.0) Urine Leukocyte Esterase Negative (NEGATIVE) Urine RBC 5-10 /HPF (0 - 0) Urine WBC 2-4 /HPF (0 - 0) Urine Squamous Epithelial Cells Occasional /LPF Urine Bacteria Few /HPF (NONE) Sodium Level 139 MMOL/L (136-145) Potassium Level 4.1 MMOL/L (3.5-5.1) Chloride Level 101 MMOL/L (98-107) Carbon Dioxide Level 27 MMOL/L (21-32) Anion Gap 11 mmol/L (5-15) Blood Urea Nitrogen 14 mg/dL (7-18) Creatinine 1.1 MG/DL (0.55-1.30) Estimat Glomerular Filtration Rate > 60 mL/min (>60) Glucose Level 140 MG/DL (74-106) Calcium Level 9.9 MG/DL (8.5-10.1) Total Bilirubin 0.5 MG/DL (0.2-1.0) Aspartate Amino Transf (AST/SGOT) 15 U/L (15-37) Alanine Aminotransferase (ALT/SGPT) 44 U/L (12-78) Alkaline Phosphatase 88 U/L (46-116) Total Protein 8.9 G/DL (6.4-8.2) Albumin 4.0 G/DL (3.4-5.0) Globulin 4.9 g/dL Albumin/Globulin Ratio 0.8 (1.0-2.7) Lipase 205 U/L (73-393) Last Vital Signs Date Time Temp Pulse Resp B/P (MAP) Pulse Ox O2 Delivery O2 Flow Rate FiO2 06/02/18 21:26 98.6 85 20 150/90 96 Room Air Status: improved Disposition: HOME, SELF-CARE Condition: Stable Scripts Levofloxacin* (LEVAQUIN*) 750 Mg Tablet 750 MG ORAL DAILY for 7 Days, TAB Prov: John Dacosta MD 06/02/18 Ranitidine Hcl* (ZANTAC*) 150 Mg Tablet 150 MG ORAL TWICE A DAY, #30 TAB Prov: John Dacosta MD 06/02/18 Referrals: [facility] (PCP) [facility] Marie Rooney [facility] Patient Instructions: Gastritis, Adult, [id number], Diverticulitis, Easy-to- Read John Dacosta MD Jun 03, 2018 14:11
== END 2018-06-02 21:15 | disposition home or self-care (01) ==
LOC: EMR 20:09
DX: K29.70 Gastritis, unspecified, without bleeding (principal); I10 Essential (primary) hypertension; E11.9 Type 2 diabetes mellitus without complications; J45.909 Unspecified asthma, uncomplicated; Z85.828 Personal history of other malignant neoplasm of skin
CPT/HCPCS: 36415; 80053; 81003; 83690; 85025; 96361; 96374; 99284; S0028

== ENCOUNTER 2019-04-09 13:18 | Emergency (ER) | payer OTHER ==
[~2019-04-09] VITALS: Ht 175.3 cm; Wt 97.5 kg
[~2019-04-09 13:18] MED LIST changes: +ATORVASTATIN CA40 MG ORAL; +LEVAQUIN750 MG ORAL
--- NOTE | 2019-04-09 13:47 | NUR ---
ED Nurse Note: Pt walked into ED for acbscess L groin that p has had for 5 days. Abscess is ertythema and swelling. No drainage. Pt is alert and orientedx4, ambulatory. is present at bedside. Pt denies numbness/tingling, nausea or V.
[2019-04-09 13:49] VITALS: BP 133/76
[2019-04-09] MEDS ORDERED: Bactrim-DS 1 tab ORAL ONE (14:00)
[2019-04-09] MEDS ORDERED: Cephalexin 250mg/5ml Susp 100mL Bottle ORAL ONE (14:00)
--- NOTE | 2019-04-09 14:21 | Emergency Room Report ---
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 Patient reports that he himself tried to drain it with a safety pin and has Miller made an incision. Denies fever and chills at this time. Denies excess pus drainage at this time. Rates the pain 10 out of 10. Also complains of numbness in the left fifth toe without any fall or injury. Afraid to have gangrene he is still. No signs of trauma noted that toe. No gangrenous changes noted. Patient has full range of motion and neurovascularly intact. The abscess in the groin has already drained and has tightened up. I used 25-gauge needle to make incision through the same hole patient has used before and was able to drain minimal pus and mostly blood. Advised patient to keep changing the dressing. If worsening symptoms return to the emergency room. Allergies: Coded Allergies: No Known Allergies (Unverified , 02/09/12) Patient History Past Medical History: see triage record Past Surgical History: unable to obtain Pertinent Family History: none Social History: Reports: smoking Immunizations: UTD Reviewed Nursing Documentation: PMH: Agreed; PSxH: Agreed Nursing Documentation-PMH Past Medical History: No History, Except For Hx Hypertension: Yes Hx Asthma: Yes Hx Diabetes: Yes - DM II Hx Cancer: Yes - Skin cancer Hx Gastrointestinal Problems: Yes - hernia Review of Systems All Other Systems: negative except mentioned in HPI Physical Exam Vital Signs Date Time Temp Pulse Resp B/P (MAP) Pulse Ox O2 Delivery O2 Flow Rate FiO2 04/09/19 13:26 98.2 86 17 138/90 (106) 97 Room Air Sp02 EP Interpretation: reviewed, normal General Appearance: no apparent distress, alert, GCS 15, non-toxic Head: normocephalic, atraumatic Eyes: bilateral eye normal inspection, bilateral eye PERRL ENT: hearing grossly normal, normal pharynx, no angioedema, normal voice Neck: full range of motion, supple/symm/no masses Respiratory: chest non-tender, lungs clear, normal breath sounds, no rhonchi, no wheezing, speaking full sentences Cardiovascular #1: regular rate, rhythm, no edema, no murmur Cardiovascular #2: 2+ femoral (R), 2+ femoral (L), 2+ dorsalis pedis (R), 2+ dorsalis pedis (L) Gastrointestinal: normal bowel sounds, non tender, soft, non-distended, no guarding, no rebound Rectal: deferred Genitourinary: no CVA tenderness, penis normal, scrotum normal, other - Draining abscess noted with tightening muscle on the left inguinal fold Musculoskeletal: back normal, normal range of motion, digits/nails normal, no calf tenderness, pelvis stable, non-tender Neurologic: alert, motor strength/tone normal, oriented x3, sensory intact, responsive, speech normal Psychiatric: judgement/insight normal, memory normal, mood/affect normal, no suicidal/homicidal ideation Skin: no rash Lymphatic: no adenopathy Procedures Incision and Drainage Incision and Drainage : Consent: Verbal Site: Left groin Wound Location: pelvis - Left groin Wound's Depth, Shape: superficial Wound Length (cm): 1 Wound Explored: contaminated Splint Applied?: No Sling Applied?: No Patient Tolerated: Well Complications: None Medical Decision Making PA Attestation All diagnoses and treatment plans were reviewed and discussed with my supervising physician Dr. 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 Patient reports that he himself tried to drain it with a safety pin and has Miller made an incision. Denies fever and chills at this time. Denies excess pus drainage at this time. Rates the pain 10 out of 10. Also complains of numbness in the left fifth toe without any fall or injury. Afraid to have gangrene he is still. No signs of trauma noted that toe. No gangrenous changes noted. Patient has full range of motion and neurovascularly intact. The abscess in the groin has already drained and has tightened up. I used 25-gauge needle to make incision through the same hole patient has used before and was able to drain minimal pus and mostly blood. Advised patient to keep changing the dressing. If worsening symptoms return to the emergency room. Ddx considered but are not limited to : Cellulitis,, superficial infection, abscess, toe fracture versus neuropathy versus sprain versus contusion Vital signs: are WNL, pt. is afebrile H&PE are most consistent with: Neuropathic pain, groin abscess ORDERS: Left toe x-ray, Bactrim DS, Keflex, ibuprofen 800 ED INTERVENTIONS: Incision and drainage, wound clean and dressed, first dose of Bactrim DS and Keflex p.o. DISCHARGE: At this time pt. is stable for d/c to home. Will provide printed patient care instructions, and any necessary prescriptions. Care plan and follow up instructions have been discussed with the patient prior to discharge. Patient take medication as directed, follow with primary care doctor, avoid irritating the affected area more. Also needs to be sent to drawer liner. If worsening symptoms return to the emergency room also follow-up with social media specialist regarding meniscus injury which appears to be chronic. Other X-Ray Diagnostic Results Other X-Ray Diagnostic Results : X-Ray ordered: Left toe # of Views/Limited Vs Complete: 3 View Indication: Pain EP Interpretation: Yes PA Xray: Interpretation reviewed, by supervising MD, and agrees with findings. Interpretation: no dislocation, no soft tissue swelling, no fractures Impression: No acute disease Electronically Signed by: Katrin Dasilva PA-C Last Vital Signs Date Time Temp Pulse Resp B/P (MAP) Pulse Ox O2 Delivery O2 Flow Rate FiO2 04/09/19 13:49 98.2 76 18 133/76 97 Room Air Status: improved Disposition: HOME, SELF-CARE Scripts Ibuprofen (Ibu) 800 Mg Tablet 800 MG PO TID, #30 TAB Prov: Katrin Jurado 04/09/19 Cephalexin* (KEFLEX*) 500 Mg Capsule 500 MG ORAL EVERY 6 HOURS for 7 Days, #28 CAP Prov: Katrin Jurado 04/09/19 Trimethoprim/Sulfamethoxazole 160/800* (BACTRIM DS TABLET*) 1 Each Tablet 1 TAB ORAL TWICE A DAY for 10 Days, #20 TAB Prov: Katrin Jurado 04/09/19 Referrals: [facility],REFERRING (PCP) Patient Instructions: Abscess, Neuropathic Pain Additional Instructions: Take medication as directed, follow-up with your drawer liner regarding neuropathic pain in your toe, follow-up with your social media specialist regarding your meniscus tear as it is chronic, change bandages in the boil every day. At this time no more drainage is needed as he is already made a small incision. Take antibiotics as directed. If fever and chills and worsening symptoms return to the emergency room Katrin Jurado Apr 09, 2019 14:21
[2019-04-09] MEDS ORDERED: BACTRIM DS TAB1 EAC1 ORAL (14:22)
[2019-04-09] MEDS ORDERED: CEPHALEXIN500 MG ORAL (14:22)
[2019-04-09] MEDS ORDERED: IBU800 MG PO (14:22)
--- NOTE | 2019-04-09 14:28 | NUR ---
ER DISCHARGE NOTE: Patient is cleared to be discharged per ERMD, pt is aox4, on room air, with stable vital signs. pt was given dc and prescription instructions, pt was able to verbalize understanding, pt id band removed. pt is able to ambulate with steady gait. pt took all belongings.
[2019-04-09 14:29] VITALS: BP 125/77
--- NOTE | 2019-04-09 15:33 | Diagnostic Imaging Report ---
Indication: Left fifth toe pain Technique: 3 views of the left fifth toe Comparison: none Findings: No acute fractures. No dislocations. Fused fifth the IP-normal anatomic variant Impression: Negative
== END 2019-04-09 14:59 | disposition home or self-care (01) ==
LOC: EMR 13:50
DX: L02.214 Cutaneous abscess of groin (principal); R20.0 Anesthesia of skin; I10 Essential (primary) hypertension; E11.9 Type 2 diabetes mellitus without complications; Z85.828 Personal history of other malignant neoplasm of skin; F17.200 Nicotine dependence, unspecified, uncomplicated
CPT/HCPCS: 10060; 73660; Z7502; 99283

== ENCOUNTER 2019-07-29 13:27 | Emergency (ER) | payer OTHER ==
[~2019-07-29] VITALS: Ht 175.3 cm; Wt 108.9 kg
[~2019-07-29 13:27] MED LIST changes: +CEPHALEXIN500 MG ORAL; +IBU800 MG PO
[2019-07-29 14:02] VITALS: BP 156/94
--- NOTE | 2019-07-29 14:03 | Emergency Room Report ---
History of Present Illness General Chief Complaint: Earache Source: Patient Present Illness HPI 48 YO male with pmhx of HTN and DM both controlled with medications presents to the ED c/o 5/10 in severity Left sided ear pain and muffled hearing x 1 week. Pt. reports prior to onset he had some nasal congestion. Pt. denies ear discharge. Pt. denies dizziness, MORALES, neck pain/stiffness or ST. pt. reports he has been using Q-tips without relief. Pt. denies fevers or chills. Allergies: Coded Allergies: No Known Allergies (Unverified , 02/09/12) COVID-19 Screening Contact w/high risk pt: No Recent Travel to affected area: No Experienced COVID-19 symptoms?: No COVID-19 Testing performed SEARCH AND RESCUE OFFICER: No Patient History Past Medical History: see triage record Past Surgical History: none Pertinent Family History: none Reviewed Nursing Documentation: PMH: Agreed; PSxH: Agreed Nursing Documentation-PMH Past Medical History: No History, Except For Hx Hypertension: Yes Hx Asthma: Yes Hx Diabetes: Yes - DM II Hx Cancer: Yes - Skin cancer Hx Gastrointestinal Problems: Yes - hernia Review of Systems All Other Systems: negative except mentioned in HPI Physical Exam Vital Signs Date Time Temp Pulse Resp B/P (MAP) Pulse Ox O2 Delivery O2 Flow Rate FiO2 07/29/19 13:37 98.4 92 17 160/97 (118) 9 Room Air Sp02 EP Interpretation: reviewed, normal General Appearance: no apparent distress, alert, GCS 15, non-toxic Head: normocephalic, atraumatic Eyes: bilateral eye normal inspection, bilateral eye PERRL ENT: hearing grossly normal, normal pharynx, normal voice, nasal congestion, other - Left TM is opaque and bulging, no canal d/c. No visible rupture. Neck: full range of motion Respiratory: lungs clear, normal breath sounds, speaking full sentences Cardiovascular #1: regular rate, rhythm Musculoskeletal: back normal, normal range of motion, gait/station normal, non- tender Neurologic: alert, motor strength/tone normal, oriented x3, sensory intact, responsive, speech normal Psychiatric: judgement/insight normal Skin: no rash, normal color Lymphatic: no adenopathy Medical Decision Making PA Attestation Dr. Stafford is my supervising Physician whom patient management has been discussed with. Diagnostic Impression: Primary Impression: Otitis media Qualified Codes: H65.192 - Other acute nonsuppurative otitis media, left ear ER Course 48 YO male with pmhx of HTN and DM both controlled with medications presents to the ED c/o 5/10 in severity Left sided ear pain and muffled hearing x 1 week. Pt. reports prior to onset he had some nasal congestion. Pt. denies ear discharge. Pt. denies dizziness, MORALES, neck pain/stiffness or ST. pt. reports he has been using Q-tips without relief. Pt. denies fevers or chills. Ddx considered but are not limited to OM, OE, mastoiditis, TM perforation, FB Vital signs: are WNL, pt. is afebrile H&PE are most consistent with otitis media ORDERS: none required at this time, the diagnosis is clinical -OTOSCOPY: Left TM is opaque and bulging, no canal d/c. No visible rupture. ED INTERVENTIONS: -Augmentin 875mg PO DISCHARGE: At this time pt. is stable for d/c to home. With PO ABX. Will provide printed patient care instructions, and any necessary prescriptions. Care plan and follow up instructions have been discussed with the patient prior to discharge. RX: Augmentin x 10 days Last Vital Signs Date Time Temp Pulse Resp B/P (MAP) Pulse Ox O2 Delivery O2 Flow Rate FiO2 07/29/19 13:37 98.4 92 17 160/97 (118) 9 Room Air Status: improved Disposition: HOME, SELF-CARE Condition: Stable Patient Instructions: Otitis Media, Adult, [id number] Additional Instructions: Take medications as directed. Follow up with a Primary Care Provider at [facility] or ENT Specialist in 3-5 days, even if your symptoms have resolved. Return sooner to ED if new symptoms occur, or current symptoms become worse. - Please note that this Emergency Department Report was dictated using [employer] end web developer technology software, occasionally this can lead to erroneous entry secondary to interpretation by the dictation equipment. Alissa Arriaga Jul 29, 2019 14:02
[2019-07-29] MEDS ORDERED: AUGMENTIN 875-1 EAC1 ORAL (14:05)
[2019-07-29] MEDS ORDERED: NEXAFED30 MG ORAL (14:05)
[2019-07-29 14:15] VITALS: BP 156/94
[2019-07-29] MEDS ORDERED: Augmentin 875mg Tab ORAL ONE (14:15)
== END 2019-07-29 15:20 | disposition home or self-care (01) ==
LOC: EMR 15:02
DX: H65.192 Other acute nonsuppurative otitis media, left ear (principal); E11.9 Type 2 diabetes mellitus without complications; I10 Essential (primary) hypertension; Z85.828 Personal history of other malignant neoplasm of skin
CPT/HCPCS: 99282

== ENCOUNTER 2020-05-11 21:39 | Emergency (ER) | payer OTHER ==
[~2020-05-11] VITALS: Ht 175.3 cm; Wt 90.7 kg
[~2020-05-11 21:39] MED LIST changes: +NEXAFED30 MG ORAL
[2020-05-11 21:45] VITALS: BP 129/78
[2020-05-11 21:51] VITALS: BP 129/78
--- NOTE | 2020-05-11 21:54 | NUR ---
ED Nurse Note: pt walked into the ed due to right arm bump x one months.
[2020-05-11] MEDS ORDERED: BACTRIM DS TAB1 EAC1 ORAL (22:08)
--- NOTE | 2020-05-11 22:08 | Emergency Room Report ---
History of Present Illness General Chief Complaint: General Complaint Source: Patient Present Illness [facility] This is a 49-year-old male who is right-hand dominant. He presents with a chief complaint of a bump on his right elbow. Is been there for about a month. He got bigger since he tried to squeeze it. No drainage. No fever chills but no nausea no vomiting. Nothing made it better. Nothing made it worse. He has no pain over it. Allergies: Coded Allergies: No Known Allergies (Unverified , 02/09/12) COVID-19 Screening Contact w/high risk pt: No Recent Travel to affected area: No Experienced COVID-19 symptoms?: No COVID-19 Testing performed YARD CONDUCTOR: No Patient History Past Medical History: see triage record, old chart reviewed, DM Past Surgical History: none Pertinent Family History: none Social History: Denies: smoking Immunizations: other Reviewed Nursing Documentation: PMH: Agreed; PSxH: Agreed Nursing Documentation-PMH Hx Hypertension: Yes Hx Asthma: Yes Hx Diabetes: Yes - DM II Hx Cancer: Yes - Skin cancer Hx Gastrointestinal Problems: Yes - hernia Review of Systems Eye: Denies: eye pain, blurred vision ENT: Denies: ear pain, nose congestion, throat swelling Respiratory: Denies: cough, shortness of breath Cardiovascular: Denies: chest pain, palpitations Gastrointestinal: Denies: abdominal pain, diarrhea, nausea, vomiting Musculoskeletal: Denies: back pain, joint pain Skin: Denies: rash Neurological: Denies: headache, numbness Endocrine: Denies: increased thirst, increased urine Hematologic/Lymphatic: Denies: easy bruising All Other Systems: negative except mentioned in HPI Physical Exam Vital Signs Date Time Temp Pulse Resp B/P (MAP) Pulse Ox O2 Delivery O2 Flow Rate FiO2 05/11/20 21:45 97.9 79 18 129/78 (95) 98 Vitals normal Sp02 EP Interpretation: reviewed, normal General Appearance: well appearing, no apparent distress, alert Head: normocephalic, atraumatic Eyes: bilateral eye PERRL, bilateral eye EOMI ENT: hearing grossly normal, normal pharynx Neck: full range of motion, supple, no meningismus Respiratory: chest non-tender, lungs clear, normal breath sounds Cardiovascular #1: regular rate, rhythm, no murmur Gastrointestinal: normal bowel sounds, non tender, no mass, no organomegaly, no bruit, non-distended Musculoskeletal: back normal, normal range of motion, gait/station normal, other - Right elbow: Posteriorly, there is a mobile 1 to 2 cm mass. No redness. No drainage. Full range of motion of the elbow. Psychiatric: mood/affect normal Procedures Incision and Drainage Incision and Drainage : Consent: Verbal Site: Right elbow Blade Size: 11 I & D Procedure: betadine prep, sterile drapes applied Anesthesia: 1% Lidocaine Volume Anesthetic (ccs): 2 Patient Tolerated: Well Complications: None Progress Area cleaned with Betadine. Local anesthetic with 1% lidocaine without epinephrine injected. I made a 1 cm incision. There was small amount of pus expressed. Also sebaceous material expressed. I try to core out the area. Patient tolerated seizure without any problem. Medical Decision Making Diagnostic Impression: Primary Impression: Infected sebaceous cyst of skin ER Course Patient with a sebaceous cyst is infected. Will discharge home. No evidence of necrotizing fasciitis or deep infection. Last Vital Signs Date Time Temp Pulse Resp B/P (MAP) Pulse Ox O2 Delivery O2 Flow Rate FiO2 05/11/20 21:51 79 18 05/11/20 21:51 97.9 129/78 98 Status: improved Disposition: HOME, SELF-CARE Condition: Stable Scripts Trimethoprim/Sulfamethoxazole 160/800* (BACTRIM DS TABLET*) 1 Each Tablet 1 TAB ORAL Q12H, #14 TAB 0 Refills Prov: Ashok Liang MD 05/11/20 Referrals: NON PHYSICIAN (PCP) Additional Instructions: Keep wound clean. Clean first with hydroperoxide and apply antibiotic ointment. Follow-up with your doctor in 2 to 3 days for recheck. Return if symptoms worsen. Ashok Liang MD May 11, 2020 22:08
== END 2020-05-11 22:10 | disposition home or self-care (01) ==
LOC: EMR 21:53
DX: L72.3 Sebaceous cyst (principal); E11.9 Type 2 diabetes mellitus without complications; Z85.828 Personal history of other malignant neoplasm of skin
CPT/HCPCS: 10060; Z7502; 99282